=== PATIENT | female | born 1955 | race Caucasian/White ===

== ENCOUNTER 2016-07-06 09:42 | Inpatient (IN) | payer MEDICARE, OTHER ==
[2016-07-06] MEDS ORDERED: ACETAMINOPHEN 500 MG TABLET ONE (10:18)
[2016-07-06] MEDS ORDERED: SODIUM CHLORIDE 0.9% 1,000 ML ONE ×2 (10:19→10:56)
[2016-07-06] MEDS ORDERED: IBUPROFEN 800 MG TABLET ONE (10:19)
[2016-07-06 10:32] LABS: BASO % 0.1 % (0.2-1.0); EOS % 0.2 % (0.9-2.9); HEMATOCRIT 39.1 % (37.0-47.0); HEMOGLOBIN 12.2 gm/l (12.0-16.0); IMM NEUT # 0.1 K/mm3 (0-0.2); IMM NEUT% 0.4 % (0-1); LYMPH % 7.5 % (15-45); MEAN CELL VOLUME 90.5 fl (81.0-99.0); MEAN CORPUSCULAR HEMOGLOBIN 28.2 pg (27.0-31.0); MEAN CORPUSCULAR HGB CONC 31.2 g/dl (33.0-37.0); MEAN PLATELET VOLUME 9.7 fl (7.4-10.4); MONO # 0.5 (0.0-0.8); MONO % 3.7 % (4-12); NEUT % 88.1 % (43-75); PLATELET COUNT 240 K/mm3 (130-400); RED CELL DISTRIBUTION WIDTH 16.6 % (11.5-14.5)
[2016-07-06 10:44] LABS: CALCIUM 9.8 mg/dL (8.6-10.3); MAGNESIUM 1.6 mg/dL (1.9-2.7)
[2016-07-06 10:48] LABS: C-REACTIVE PROTEIN 7.3 mg/dl (<1.0)
[2016-07-06] MEDS ORDERED: ASPIRIN CHEWTAB 81 MG TABLET ONE (10:56)
[2016-07-06] MEDS ORDERED: DAPTOMYCIN 850 MG in SODIUM CHLORIDE 0.9% 100 ML IV ONE (11:00)
[2016-07-06 11:55] VITALS: BMI 56.5
[2016-07-06] MEDS ORDERED: LIDOCAINE 1% (PRES FREE) 5 ML VIAL PF PRN (12:17)
[2016-07-06] MEDS ORDERED: SODIUM CHLORIDE 0.9% 100 ML IV PRN (12:17)
[2016-07-06] MEDS ORDERED: LORAZEPAM 2 MG/ML 1ML SDV IV PRN (12:17)
[2016-07-06] MEDS ORDERED: MAGNESIUM HYDROXIDE 30 ML UDCUP PO PRN (12:17)
[2016-07-06] MEDS ORDERED: BISACODYL 10 MG SUP PR PRN (12:17)
[2016-07-06] MEDS ORDERED: BISACODYL 5 MG TABLET.EC PO PRN (12:17)
[2016-07-06] MEDS ORDERED: MENTHOL/CETYLPYRD 1 EACH LOZENGE PO PRN (12:17)
[2016-07-06] MEDS ORDERED: BLISTEX LIPSTICK 1 EACH TP PRN (12:17)
[2016-07-06] MEDS ORDERED: INSULIN ASPART (DOSE) 100 UNITS/1 ML SUB-Q PRN (12:29)
[2016-07-06] MEDS ORDERED: ENOXAPARIN SODIUM 30 MG/0.3 ML SYRINGE SUB-Q SCH (12:30)
[2016-07-06] MEDS ORDERED: CYCLOBENZAPRINE HCL 10 MG TABLET PO PRN (13:00)
[2016-07-06] MEDS: ENOXAPARIN SODIUM 40 MG/0.4 ML SYRINGE SUB-Q SCH (14:55)
[2016-07-06] MEDS: PANTOPRAZOLE 40 MG TABLET DR PO SCH (14:55)
[2016-07-06] MEDS: SODIUM CHLORIDE 0.9% 1,000 ML IV SCH ×2 (14:56→22:35)
[2016-07-06] MEDS ORDERED: GABAPENTIN 300 MG CAPSULE PO SCH (15:00)
[2016-07-06] MEDS: INSULIN ASPART (DOSE) 100 UNITS/1 ML SUB-Q SCH (17:23)
[2016-07-06] MEDS: FUROSEMIDE 40 MG TABLET PO SCH (19:19)
[2016-07-06] MEDS: OXYCODONE/ACETAMINOPHEN 5/325 MG TABLET PO PRN (19:19)
--- NOTE | 2016-07-06 20:51 | HP ---
ANTOINE FAIR [id number] DATE OF ADMISSION: 07/06/2016 IDENTIFICATION: Ms. Fair is a 61-year-old followed by Dr. Calero. She is well-known to the Hospitalist Service from repeated admissions for lower extremity cellulitis. CHIEF COMPLAINT: Fever and left leg pain. HISTORY OF PRESENT ILLNESS: Ms. Fair reports sudden onset early this morning of left leg pain, erythema and fever, similar to previous episodes of cellulitis. Because of these symptoms she came to [facility] Room where her workup was significant for an elevated white blood cell count, elevated lactate, tachycardia and tachypnea, as well as fever. She was treated with intravenous daptomycin and referred to the Hospitalist Service. REVIEW OF SYSTEMS: HEENT - she does report a headache. Denies problems with ears, eyes, nose or throat. Denies faintness. Respiratory - no cough or dyspnea. Cardiac - no chest pain. She has had some palpitations. Gastrointestinal - she reports epigastric abdominal pain and reflux symptoms. No nausea or vomiting. No diarrhea, constipation, hematochezia or melena. Genitourinary - no symptoms. Musculoskeletal - just the left lower leg pain. Constitutional - she has had fever and chills. PAST MEDICAL HISTORY: 1. Recurrent lower extremity bacterial cellulitis, with a previous episode of septic shock secondary to this. 2. Chronic venous stasis dermatitis and edema. 3. Chronic kidney disease, with a baseline creatinine of 1.1 - 1.2, making that chronic kidney disease Stage-3. It is associated with diabetes. 4. Diabetes mellitus Type-2, with long-term insulin use. 5. Morbid obesity, with a body mass index greater than 55. 6. Obstructive sleep apnea secondary to morbid obesity. 7. Obesity hypoventilation syndrome, with chronic respiratory failure, on supplemental oxygen at 2 liters per minute as needed at home. 8. Chronic diastolic congestive heart failure. 9. Chronic anemia secondary to chronic kidney disease and iron deficiency. 10. Hypertension. 11. Hypothyroidism. 12. Dyslipidemia. 13. Chronic low back pain, on chronic opiate therapy. 14. Chronic depression. PAST SURGICAL HISTORY: 1. Right wrist surgery. 2. Ovarian cyst surgery at 17 years of age. ALLERGIES: Reported to: 1. Vancomycin, which caused hearing loss. 2. Zosyn, which gave her drug fevers. 3. Metformin, which gave her diarrhea. 4. Neomycin, which caused a rash. 5. Last February she had rhabdomyolysis while on a combination of daptomycin and atorvastatin. In March after atorvastatin had been discontinued, she was again treated with daptomycin without having rhabdomyolysis. MEDICATIONS: 1. Oxycodone with acetaminophen 5/325 one tablet three times daily. 2. Potassium chloride 20 mEq by mouth twice a day. 3. Senna 17.2 mg by mouth twice a day. 4. Furosemide 80 mg by mouth twice a day. 5. Gabapentin 600 mg by mouth three times a day. 6. Insulin glargine 40 units sub-Q twice a day. 7. Insulin aspart 5 units sub-Q with meals. 8. Levothyroxine 75 mcg by mouth daily. 9. Cyclobenzaprine 10 mg by mouth three times a day. 10. Lexapro 20 mg by mouth daily. 11. Ferrous sulfate 325 mg by mouth daily. 12. Amitriptyline 75 mg by mouth nightly. HABITS: She is a former smoker, with a [id number] history, but quit about ten years ago. No alcohol or illicit drug use. SOCIAL HISTORY: She is , but lives with a significant other, Loki, in [place]. Loki's mother also lives in the household. She has daughter who lives in [place], but her daughter is currently on the coast at [place] for spring. FAMILY HISTORY: Her father in his 70's of alcoholism and prostate cancer. Her mother in her 70's with emphysema. PHYSICAL EXAMINATION: GENERAL: This is a pleasant, morbidly obese 61-year-old. VITAL SIGNS: Temperature in the emergency department was 103.2 degrees Fahrenheit. Blood pressure 112/54. Pulse 108. Respiratory rate 24. Oxygen saturation 95-98% on room air. HEENT: Pupils equal, round and reactive. Extraocular muscles intact. Oropharynx is moist, nearly edentulous. CHEST: Clear to auscultation. HEART: Regular. No murmur appreciated. ABDOMEN: Obese, with mild epigastric tenderness. No guarding or rebound. Normal bowel tones. No organomegaly. EXTREMITIES: There is chronic tense nonpitting edema, with venous stasis dermatitis on the right. Moderate dorsalis pedis pulse. On the left, there is similar venous stasis dermatitis and chronic edema, with overlying erythema and some extension into the medial thigh. NEUROLOGIC: Alert and oriented. No focal deficits. LABORATORIES: White blood cell count 13.7, with 88% neutrophils. Hemoglobin and hematocrit 12.2 and 39.1, and platelets 240. Lactate 2.5. Sodium 134, potassium 4.1, chloride 98, C02 of 28, BUN of 28, creatinine 1.4 and glucose 98. Magnesium 1.6. Liver enzymes are normal. CPK is 96. MB fraction is 0.9. Troponin-I is 0.09. C-reactive protein is 7.3. Influenza A and B negative. Rapid Strep test negative. Blood cultures times two were obtained, as well as a superficial wound culture. EKG: Sinus tachycardia. ASSESSMENT: Ms. Fair is a 61-year-old with: 1. Acute presumed bacterial cellulitis, with lymphangitis of the left lower extremity. 2. Severe sepsis, with leukocytosis, tachycardia, tachypnea, fever and acute kidney injury secondary to cellulitis. Also lactic acidosis secondary to cellulitis. 3. Complicated medical history, including chronic diastolic heart failure and previous exacerbation of heart failure due to IV hydration for sepsis. 4. Acute hyponatremia and hypomagnesemia. 5. Elevated troponin, which is related to acute on chronic renal failure and stress ischemia. No evidence of acute coronary syndrome. PLAN: 1. Admit to intermediate care. 2. Continue treatment with daptomycin, but follow CPK given history of rhabdomyolysis with daptomycin. 3. Repeat lactate prior to six hours. 4. IV hydration with one liter of saline, a full 30 mL per kilogram is contraindicated with her previous history of acute heart failure secondary to this degree of hydration. She has shown rapid improvement with the smaller volume fluid replacement already. 5. Blood sugars AC and HS, and cover with additional insulin as needed. 6. Venous thromboembolism prophylaxis with morbid obesity dose enoxaparin. 7. Full code status. 8. Oral magnesium replacement.
[2016-07-06] MEDS: INSULIN GLARGINE (DOSE) 100 UNITS/ML UNIT SUB-Q SCH (20:52)
[2016-07-06] MEDS: POTASSIUM CHLORIDE 20 MEQ TAB.PRT.SR PO SCH (20:54)
[2016-07-06] MEDS: GABAPENTIN 300 MG CAPSULE PO SCH (20:54)
[2016-07-06] MEDS: AMITRIPTYLINE HCL 25 MG TABLET PO SCH (20:55)
[2016-07-06] MEDS: Magnesium Oxide 400 MG TABLET PO SCH (20:55)
[2016-07-06] MEDS: SENNOSIDES 8.6 MG TABLET PO SCH (20:56)
[2016-07-06] MEDS ORDERED: FUROSEMIDE 40 MG TABLET PO SCH (21:00)
[2016-07-06] MEDS: ACETAMINOPHEN 325 MG TABLET PO PRN (22:56)
[2016-07-06 23:22] LABS: SPECIFIC GRAVITY 1.015 (1.001-1.030); URINE BILIRUBIN NEGATIVE (NEGATIVE); URINE BLOOD NEGATIVE (NEGATIVE); URINE GLUCOSE (UA) NEGATIVE (NEGATIVE); URINE LEUKOCYTE ESTERASE NEGATIVE (NEGATIVE); URINE NITRITE NEGATIVE (NEGATIVE); URINE PROTEIN NEGATIVE (NEGATIVE); URINE UROBILINOGEN NORMAL (0-1 mg/dl)
[2016-07-06 23:25] LABS: URINE APPEARANCE CLEAR; URINE COLOR YELLOW
[2016-07-07] MEDS: ENOXAPARIN SODIUM 40 MG/0.4 ML SYRINGE SUB-Q SCH ×2 (00:25→12:19)
[2016-07-07 06:06] LABS: ABSOLUTE NEUTROPHIL COUNT 12.6 K/mm3 (1.8-7.7); BASO % 0.2 % (0.2-1.0); EOS % 0.1 % (0.9-2.9); HEMATOCRIT 34.9 % (37.0-47.0); HEMOGLOBIN 10.6 gm/l (12.0-16.0); IMM NEUT # 0.1 K/mm3 (0-0.2); IMM NEUT% 0.5 % (0-1); LYMPH # 1.5 (1.0-4.8); LYMPH % 10.2 % (15-45); MEAN CELL VOLUME 92.8 fl (81.0-99.0); MEAN CORPUSCULAR HEMOGLOBIN 28.2 pg (27.0-31.0); MEAN CORPUSCULAR HGB CONC 30.4 g/dl (33.0-37.0); MEAN PLATELET VOLUME 10.1 fl (7.4-10.4); MONO # 0.7 (0.0-0.8); MONO % 4.8 % (4-12); NEUT % 84.2 % (43-75); PLATELET COUNT 197 K/mm3 (130-400); RED CELL DISTRIBUTION WIDTH 17.2 % (11.5-14.5)
[2016-07-07 06:29] LABS: CALCIUM 8.7 mg/dL (8.6-10.3); MAGNESIUM 1.8 mg/dL (1.9-2.7)
[2016-07-07] MEDS: SODIUM CHLORIDE 0.9% 1,000 ML IV SCH (07:05)
--- NOTE | 2016-07-07 07:40 | PDOC43 ---
- Subjective Chief Complaint: Left leg pain Leg feels better, no other c/o - Objective Vital Signs Temperature 97.3 F 07/07/16 06:00 Pulse Rate 84 07/07/16 06:00 Respiratory Rate 18 07/07/16 06:00 Blood Pressure 106/71 07/06/16 23:00 O2 Saturation by Pulse Oximetry 95 07/07/16 06:00 Oxygen Delivery Method Room Air Oxygen Flow Rate 0 Intake and Output 07/06/16 07/07/16 07/08/16 06:59 06:59 06:59 Intake Total 5245 Output Total 1500 Balance 3745 General: Alert, Oriented x3, Cooperative, No Acute Distress HEENT: Mucous membr. moist/pink Lungs: Clear to Auscultation Bilaterally Cardiovascular: Regular Rate and Rhythm, Murmur (2/6) Abdomen: Soft, Normal Bowel Sounds, Other (obese), No Tenderness, No Masses Extremities: Edema (at baseline), Normal Pulses, Other (left calf erythema reduced and darker red rather than bright pink.) Wound: Other (anterior left calf with crusted stage 2 wound, irregular boarders) Neurological: Normal Speech Psych/Mental Status: Normal Affect, Normal Mood Laboratory 07/07/16 05:30 07/07/16 05:30 07/07/16 07/06/16 07/06/16 05:30 20:39 17:11 RBC 3.76 L MCHC 30.4 L RDW 17.2 H Estimated GFR 46 L POC Capillary Glucose 175 H 116 H Magnesium 1.8 L Troponin I 07/06/16 15:15 RBC MCHC RDW Estimated GFR POC Capillary Glucose Magnesium Troponin I 0.12 H Current Medications: Current meds reviewed in EMR. - Problems: Assessment/Plan (1) Cellulitis Qualifiers: Site of cellulitis: extremity Site of cellulitis of extremity: lower extremity Laterality: left Qualifier Code: (L03.116) Cellulitis of left lower limb Status: AcuteAssessment/Plan: Presumed bacterial cellulitis with lymphangitis present on admit. Prior history of MRSA cellulitis. Improved with daptomycin treatment, continue treatment and move to med/surg. (2) Sepsis Qualifiers: Sepsis type: sepsis due to unspecified organism Qualifier Code: (A41.9 ) Sepsis, unspecified organism Status: AcuteAssessment/Plan: Severe sepsis with AMILCAR, lactic acidosis, fever, tachycardia, tachypnea and leukocytosis secondary to cellulitis present on admit. Improved. 30 mL/KG IV fluid hydration was contraindicated due to history of acute CHF due to similar hydration. (3) AMILCAR (acute kidney injury) Status: AcuteAssessment/Plan: Due to sepsis, Resolving (4) Hypomagnesemia Status: AcuteAssessment/Plan: Improving with oral replacement. (5) Hyponatremia Status: AcuteAssessment/Plan: Improved with hydration (6) Elevated troponin Status: AcuteAssessment/Plan: Due to sepsis and AMILCAR, no ACS, resolved. (7) CKD (chronic kidney disease) stage 3, GFR 30-59 ml/min Status: ChronicAssessment/Plan: Returning to baseline. (8) DM2 (diabetes mellitus, type 2) Qualifiers: Diabetes mellitus complication status: with kidney complications Diabetes mellitus complication detail: with chronic kidney disease Diabetes mellitus fci insulin use: with fci use Chronic kidney disease stage: stage 3 (moderate) Qualifier Code: (E11.22) Type 2 diabetes mellitus with diabetic chronic kidney disease Status: ChronicAssessment/Plan: BG stable (9) Diastolic CHF Qualifiers: Congestive heart failure chronicity: chronic Qualifier Code: (I50.32) Chronic diastolic (congestive) heart failure Status: ChronicAssessment/Plan : Stable, no acute exacerbation at this time, follow (10) Morbid obesity Qualifiers: Obesity type: with alveolar hypoventilation Qualifier Code: (E66.2) Morbid (severe) obesity with alveolar hypoventilation Status: Chronic Assessment/Plan: Complicates treatment of cellulitis, diabetes, KENTON (11) KENTON (obstructive sleep apnea) Status: ChronicAssessment/Plan: With chronic hypoxemic respiratory failure, supplemental O2 as needed (12) Dyslipidemia Status: ChronicAssessment/Plan: Off atorvastatin due to rhabdomyalysis in February. (13) HTN (hypertension) Qualifiers: Hypertension type: essential hypertension Qualifier Code: (I10) Essential (primary) hypertension Status: ChronicAssessment/Plan: well controlled (14) Hypothyroidism Qualifiers: Hypothyroidism type: acquired Qualifier Code: (E03.9) Hypothyroidism, unspecified Status: ChronicAssessment/Plan: on replacement (15) Depression Qualifiers: Depression Type: unspecified Qualifier Code: (F32.9) Major depressive disorder, single episode, unspecified Status: ChronicAssessment/Plan: stable VTE Prophylaxis: morbid obesity dose enoxaparin Disposition: PICC today, home in 2-3 days.
[2016-07-07] MEDS: LEVOTHYROXINE SODIUM 75 MCG TABLET PO SCH (07:55)
[2016-07-07] MEDS: INSULIN GLARGINE (DOSE) 100 UNITS/ML UNIT SUB-Q SCH ×2 (08:57→21:34)
[2016-07-07] MEDS: OXYCODONE/ACETAMINOPHEN 5/325 MG TABLET PO PRN ×3 (08:58→21:27)
[2016-07-07] MEDS: ESCITALOPRAM 20 MG TABLET PO SCH (08:58)
[2016-07-07] MEDS: PANTOPRAZOLE 40 MG TABLET DR PO SCH (08:58)
[2016-07-07] MEDS: SENNOSIDES 8.6 MG TABLET PO SCH ×2 (08:58→21:21)
[2016-07-07] MEDS: FUROSEMIDE 40 MG TABLET PO SCH ×2 (08:58→16:17)
[2016-07-07] MEDS: FERROUS SULFATE (65 Fe) 325 MG TABLET PO SCH (08:58)
[2016-07-07] MEDS: POTASSIUM CHLORIDE 20 MEQ TAB.PRT.SR PO SCH ×2 (08:59→21:18)
[2016-07-07] MEDS: GABAPENTIN 300 MG CAPSULE PO SCH ×2 (08:59→21:19)
[2016-07-07] MEDS: INSULIN ASPART (DOSE) 100 UNITS/1 ML SUB-Q SCH ×3 (09:58→18:39)
[2016-07-07] MEDS ORDERED: DAPTOMYCIN 500 MG in SODIUM CHLORIDE 0.9% 100 ML IV SCH (11:00)
[2016-07-07] MEDS: SODIUM CHLORIDE 0.9% IV SCH (11:06)
[2016-07-07] MEDS: DAPTOMYCIN IV SCH (11:06)
[2016-07-07] MEDS: Magnesium Oxide 400 MG TABLET PO SCH ×2 (12:19→21:20)
[2016-07-07] MEDS: PENICILLIN V POTASSIUM 500 MG TABLET PO SCH (21:18)
[2016-07-07] MEDS: AMITRIPTYLINE HCL 25 MG TABLET PO SCH (21:20)
[2016-07-08] MEDS: ENOXAPARIN SODIUM 40 MG/0.4 ML SYRINGE SUB-Q SCH ×2 (01:12→13:44)
[2016-07-08] MEDS: ACETAMINOPHEN 325 MG TABLET PO PRN (01:13)
[2016-07-08 05:50] LABS: HEMATOCRIT 31.9 % (37.0-47.0); HEMOGLOBIN 9.6 gm/l (12.0-16.0); MEAN CELL VOLUME 93.5 fl (81.0-99.0); MEAN CORPUSCULAR HEMOGLOBIN 28.2 pg (27.0-31.0); MEAN CORPUSCULAR HGB CONC 30.1 g/dl (33.0-37.0); RED CELL DISTRIBUTION WIDTH 17.4 % (11.5-14.5)
[2016-07-08 06:14] LABS: CALCIUM 8.9 mg/dL (8.6-10.3)
[2016-07-08] MEDS: LEVOTHYROXINE SODIUM 75 MCG TABLET PO SCH (07:17)
[2016-07-08 08:26] VITALS: BP 108/54
[2016-07-08] MEDS: INSULIN GLARGINE (DOSE) 100 UNITS/ML UNIT SUB-Q SCH (09:34)
[2016-07-08] MEDS: POTASSIUM CHLORIDE 20 MEQ TAB.PRT.SR PO SCH (09:34)
[2016-07-08] MEDS: PENICILLIN V POTASSIUM 500 MG TABLET PO SCH (09:34)
[2016-07-08] MEDS: FERROUS SULFATE (65 Fe) 325 MG TABLET PO SCH (09:35)
[2016-07-08] MEDS: GABAPENTIN 300 MG CAPSULE PO SCH (09:35)
[2016-07-08] MEDS: ESCITALOPRAM 20 MG TABLET PO SCH (09:36)
[2016-07-08] MEDS: PANTOPRAZOLE 40 MG TABLET DR PO SCH (09:36)
[2016-07-08] MEDS: FUROSEMIDE 40 MG TABLET PO SCH (09:36)
[2016-07-08] MEDS: INSULIN ASPART (DOSE) 100 UNITS/1 ML SUB-Q SCH ×2 (09:37→12:09)
[2016-07-08] MEDS: SENNOSIDES 8.6 MG TABLET PO SCH (09:38)
[2016-07-08] MEDS ORDERED: PUMP TUBING ONE (10:54)
[2016-07-08] MEDS: SODIUM CHLORIDE 0.9% IV SCH (11:00)
[2016-07-08] MEDS: OXYCODONE/ACETAMINOPHEN 5/325 MG TABLET PO PRN (11:00)
[2016-07-08] MEDS: DAPTOMYCIN IV SCH (11:00)
--- NOTE | 2016-07-08 11:22 | PDOC43 ---
- Subjective Chief Complaint: Left leg pain Feeling better. Redness improved. Subjective: Reports Tolerating Diet Well, Reports Adequate Oral Intake, Denies Shortness of Breath, Denies Cough, Denies Chest Pain, Denies Abdominal Pain, Denies Nausea, Denies Vomiting, Denies Fever, Denies Chills - Objective Vital Signs Temperature 98.0 F 07/08/16 08:00 Pulse Rate 74 07/08/16 08:00 Respiratory Rate 20 07/08/16 08:00 Blood Pressure 108/54 07/08/16 08:00 O2 Saturation by Pulse Oximetry 98 07/08/16 08:00 Oxygen Delivery Method Room Air Oxygen Flow Rate 0 Intake and Output 07/07/16 07/08/16 07/09/16 06:59 06:59 06:59 Intake Total 5245 2698 Output Total 1500 4025 Balance 3745 -1327 General: Alert, Oriented x3, Cooperative, No Acute Distress Lungs: Clear to Auscultation Bilaterally Cardiovascular: Regular Rate and Rhythm Abdomen: Soft, Normal Bowel Sounds, Non-Distended, No Tenderness Extremities: Other (Redness decreased fom demarcation line.) Laboratory 07/08/16 05:30 07/08/16 05:30 07/08/16 07/08/16 07/08/16 08:18 05:30 01:16 RBC 3.41 L MCHC 30.1 L RDW 17.4 H BUN 27 H Estimated GFR 42 L POC Capillary Glucose 144 H 117 H 07/07/16 07/07/16 18:11 12:23 RBC MCHC RDW BUN Estimated GFR POC Capillary Glucose 125 H 112 H Current Medications: Current meds reviewed in EMR. - Problems: Assessment/Plan (1) Cellulitis Qualifiers: Site of cellulitis: extremity Site of cellulitis of extremity: lower extremity Laterality: left Qualifier Code: (L03.116) Cellulitis of left lower limb Status: AcuteAssessment/Plan: Presumed bacterial cellulitis with lymphangitis present on admit. Strep growing from superficial wound cx but prior history of MRSA cellulitis. Con't daptomycin treatment. (2) Sepsis Qualifiers: Sepsis type: sepsis due to unspecified organism Qualifier Code: (A41.9 ) Sepsis, unspecified organism Status: AcuteAssessment/Plan: Resolved. (3) AMILCAR (acute kidney injury) Status: AcuteAssessment/Plan: Resolved. (4) DM2 (diabetes mellitus, type 2) Qualifiers: Diabetes mellitus complication status: with kidney complications Diabetes mellitus complication detail: with chronic kidney disease Diabetes mellitus terminal operator insulin use: with chcf use Chronic kidney disease stage: stage 3 (moderate) Qualifier Code: (E11.22) Type 2 diabetes mellitus with diabetic chronic kidney disease Status: ChronicAssessment/Plan: BG stable (5) Diastolic CHF Qualifiers: Congestive heart failure chronicity: chronic Qualifier Code: (I50.32) Chronic diastolic (congestive) heart failure Status: ChronicAssessment/Plan : Stable, no acute exacerbation at this time, follow (6) Morbid obesity Qualifiers: Obesity type: with alveolar hypoventilation Qualifier Code: (E66.2) Morbid (severe) obesity with alveolar hypoventilation Status: Chronic Assessment/Plan: Complicates treatment of cellulitis, diabetes, KENTON (7) KENTON (obstructive sleep apnea) Status: ChronicAssessment/Plan: With chronic hypoxemic respiratory failure, supplemental O2 as needed (8) Dyslipidemia Status: ChronicAssessment/Plan: Off atorvastatin due to rhabdomyalysis in February. (9) HTN (hypertension) Qualifiers: Hypertension type: essential hypertension Qualifier Code: (I10) Essential (primary) hypertension Status: ChronicAssessment/Plan: well controlled (10) Hypothyroidism Qualifiers: Hypothyroidism type: acquired Qualifier Code: (E03.9) Hypothyroidism, unspecified Status: ChronicAssessment/Plan: on replacement (11) Depression Qualifiers: Depression Type: unspecified Qualifier Code: (F32.9) Major depressive disorder, single episode, unspecified Status: ChronicAssessment/Plan: stable VTE Prophylaxis: morbid obesity dose enoxaparin Disposition: PICC today, home tonight or in AM.
--- NOTE | 2016-07-08 13:18 | RAD ---
CXR FOR PLACEMENT/LINE or TUBE HISTORY: PICC line placement. COMPARISONS: 03/20/2016. FINDINGS: A single view of the chest demonstrates a left-sided PICC catheter with its tip projecting within the expected location of the superior vena cava. The catheter should be advanced approximately 3 cm for more optimal position. No pneumothorax is visualized. The lung bhatt. Clear. IMPRESSION: 1. A left-sided PICC catheter with its tip projecting within the expected location of the superior vena cava. The catheter should be advanced approximately 3 cm for more optimal position. The findings were discussed with Shi at the time the examination.
[2016-07-08] MEDS: Magnesium Oxide 400 MG TABLET PO SCH (13:44)
--- NOTE | 2016-07-08 20:40 | DS ---
ANTOINE FAIR [id number] ADMIT DATE: 07/04/2016 DISCHARGE DATE: 07/08/2016 ADMIT DIAGNOSES: 1. Recurrent lower extremity cellulitis, presumed bacterial. 2. Severe sepsis secondary to above. 3. Multiple other chronic medical problems at baseline, including morbid obesity, chronic diastolic heart failure, obesity/hypoventilatory syndrome with chronic respiratory failure, on chronic O2 therapy, obstructive sleep apnea, diabetes and chronic kidney disease. DISCHARGE DIAGNOSES: 1. Recurrent lower extremity cellulitis, presumed bacterial. 2. Severe sepsis secondary to above. 3. Multiple other chronic medical problems at baseline, including morbid obesity, chronic diastolic heart failure, obesity/hypoventilatory syndrome with chronic respiratory failure, on chronic O2 therapy, obstructive sleep apnea, diabetes and chronic kidney disease. ADMIT HISTORY AND PHYSICAL: Please see Dr. Delarosa' note for details. Briefly, Ms. Fair is a 61-year-old female well-known to our service due to previous admissions for similar issues. She presented on the day of admission with about a twelve hour history of left leg pain and fever, similar to previous episodes of cellulitis. In the ER she was worked-up and found to have evidence of a left lower extremity cellulitis with severe sepsis. Her other medical problems appeared to be at baseline. She was admitted. HOSPITAL COURSE: She was admitted due to multiple allergies. She was placed on a single therapy with daptomycin given her history of MRSA. Blood cultures all remained negative. She did have a superficial wound culture with Strep species. It was felt that the daptomycin would cover this well. By the day of discharge, she had significant improvement. Her sepsis had resolved on the first day of hospitalization. A PICC line was placed and she was very anxious to go home. We have elected to discharge her home with plans for close outpatient follow-up. DISCHARGE MEDICATIONS: Daptomycin 580 mg IV every 24 hours via PICC line, to be administered at [facility]. All other medications as prior to admit as follows: 1. Gabapentin 600 mg by mouth three times a day. 2. Levothyroxine 75 mcg by mouth every day. 3. Elavil 75 mg by mouth every at bedtime. 4. Lasix 80 mg by mouth twice a day. 5. Potassium chloride 20 mEq by mouth twice a day. 6. Percocet one tab by mouth three times a day as needed. 7. Lantus 40 units sub-Q twice a day. 8. NovoLog correction scale. 9. Iron sulfate 325 by mouth every day. 10. Flexeril 10 mg by mouth three times a day as needed. 11. Lexapro 20 mg by mouth every day. 12. Senna 17.2 mg by mouth twice a day. DISCHARGE FOLLOW-UP: 1. With Dr. Calero next week as scheduled. 2. Follow-up with the [facility] for continued IV antibiotics and PICC line care. cc: Dr. Calero
== END 2016-07-08 15:00 | disposition home or self-care (01) | DRG 872 ==
LOC: ED 09:42 → ICU 10:58 → MS 07-08 01:11
PROVIDERS: ADMIT Family Medicine; ATTEND Family Medicine
DX: A41.9 Sepsis, unspecified organism (principal); I13.0 Hypertensive heart and chronic kidney disease with heart failure and stage 1 through stage 4 chronic kidney disease, or unspecified chronic kidney disease; I50.32 Chronic diastolic (congestive) heart failure; J96.10 Chronic respiratory failure, unspecified whether with hypoxia or hypercapnia; L03.116 Cellulitis of left lower limb; N17.9 Acute kidney failure, unspecified; B96.89 Other specified bacterial agents as the cause of diseases classified elsewhere; R65.20 Severe sepsis without septic shock; E11.22 Type 2 diabetes mellitus with diabetic chronic kidney disease; N18.3 Chronic kidney disease, stage 3 (moderate); E66.01 Morbid (severe) obesity due to excess calories; G47.33 Obstructive sleep apnea (adult) (pediatric); E11.21 Type 2 diabetes mellitus with diabetic nephropathy; Z22.322 Carrier or suspected carrier of Methicillin resistant Staphylococcus aureus; E83.42 Hypomagnesemia; E03.9 Hypothyroidism, unspecified; Z99.81 Dependence on supplemental oxygen